=== PATIENT | male | born 1975 | race Caucasian/White ===

== ENCOUNTER 2019-05-29 08:48 | Emergency (ER) | payer BC, OTHER ==
[~2019-05-29] VITALS: Ht 182.9 cm; Wt 135.2 kg
--- NOTE | 2019-05-29 08:55 | NUR ---
CAME IN FOR FACIAL [facility]BN[facility] STARTED 10AM YESTERDAY, MORE ON L SIDE TODAY, TO ER BED 9, HOOKED TO [facility], CHANGED TO [facility], PROVIDED W WARM BLANKET, AWAITING MD GOMEZ
--- NOTE | 2019-05-29 09:04 | NUR ---
DR WILLIAM AT BEDSIDE
--- NOTE | 2019-05-29 09:52 | NUR ---
IV removed. Catheter intact and site benign. Pressure and 4x4 applied to site. No bleeding noted.Patient discharged to home in stable condition. Written and verbal after care instructions given. Patient verbalizes understanding of instruction.
[2019-05-29 09:53] VITALS: BP 148/90
== END 2019-05-29 09:55 | disposition home or self-care (01) ==
LOC: ER 08:50
DX: G51.0 Bell's palsy (principal)
CPT/HCPCS: 82962-TC